=== PATIENT | female | born 1980 | race African-American/Black ===

== ENCOUNTER 2017-08-29 08:16 | Emergency (ER) | payer MEDICARE, MEDICAID | END 2017-08-29 09:10 | disposition home or self-care (01) | LOC: ERS 08:16 | DX: M25.532 Pain in left wrist (principal); M25.531 Pain in right wrist; I10 Essential (primary) hypertension; M81.0 Age-related osteoporosis without current pathological fracture; F17.210 Nicotine dependence, cigarettes, uncomplicated; Z71.6 Tobacco abuse counseling; Z79.899 Other long term (current) drug therapy | CPT/HCPCS: 99406 ==